=== PATIENT | male | born 1990 | race Caucasian/White ===

== ENCOUNTER → 2020-03-27 | Day surgery (SDC) | payer BC ==
[2020-03-22 10:53] VITALS: BMI 36.6
[~2020-03-27] MED LIST: ACETAMINOPHEN TAB 500 MG TAB PO ONE; DEXAMETHASONE SOD PHOSPHATE 10 MG/ML 1 ML VIAL IV ONE; HEPARIN SODIUM,PORCINE 5,000 UNIT/ML 1 ML VIAL SQ ONE; HYDROmorphone 0.5 MG/0.5 ML SYRINGE IVP PRN; KETOROLAC 15 MG/ML 1 ML VIAL ONE; LACTATED RINGERS 1,000 ML IV SCH; LIDOCAINE 1% INJ 10MG/ML (20 ML MDV) ONE; LIDOCAINE 1%-EPI 1:100,000 20 ML VIAL SQ ONE; MIDAZOLAM 2 MG/2 ML VIAL IV PRN; MIDAZOLAM 2 MG/2 ML VIAL ONE; ONDANSETRON 4 MG/2 ML VIAL IVP ONE; PROPOFOL 10 MG/ML 20 ML VIAL IV ONE; SCOPOLAMINE 1.5MG/72HR PATCH TRANSDERM ONE; SUCCINYLCHOLINE CHLORIDE VIAL 200 MG/10 ML VIAL IV ONE; fentaNYL (PF) 50 MCG/ML 2 ML AMP ONE; metroNIDAZOLE-NS PMX 500 MG in SALINE 1 100ML.BAG IVPB ONE
--- NOTE | 2020-03-27 08:36 | P.GSHP ---
History of Present Illness H&P Date: 03/27/20 Chief Complaint: Pilonidal cyst This a 21-year-old male who presents today for excision of pilonidal cyst. Patient has had a chronically inflamed phimosis for several months. Past Medical History Additional Past Medical History / Comment(s): pilonidal cyst History of Any Multi-Drug Resistant Organisms: None Reported Past Surgical History: Orthopedic Surgery Additional Past Surgical History / Comment(s): ORIF left arm-hardware later removed Past Anesthesia/Blood Transfusion Reactions: No Reported Reaction Additional Past Anesthesia/Blood Transfusion Reaction / Comment(s): no hx blood transfusion Smoking Status: Current every day smoker - Past Family History Mother Family Medical History: No Reported History Medications and Allergies Home Medications Medication Instructions Recorded Confirmed Type Ibuprofen [Motrin] 600 mg PO Q6HR PRN 03/22/20 03/27/20 History Allergies Allergy/AdvReac Type Severity Reaction Status Date / Time No Known Allergies Allergy Verified 03/27/20 06:47 Surgical - Exam Vital Signs Temp Pulse Resp BP Pulse Ox 97.0 F L 90 16 155/84 98 03/27/20 06:42 03/27/20 06:42 03/27/20 06:42 03/27/20 06:42 03/27/20 06:42 - General well developed, well nourished, no distress - Eyes PERRL - ENT normal pinna - Neck no masses - Respiratory normal expansion - Cardiovascular Rhythm: regular - Abdomen Abdomen: soft, non tender - Neurologic Chronically inflamed pilonidal cyst Assessment and Plan Assessment: Pilonidal cyst. We'll perform excision. Patient aware the wound only packed after surgery.
--- NOTE | 2020-03-27 08:37 | P.OP ---
Date of Procedure: 03/27/20 Preoperative Diagnosis: Pilonidal cyst Postoperative Diagnosis: Pilonidal cyst Procedure(s) Performed: Excision of pilonidal cyst Anesthesia: CARMEN Surgeon: Rodolfo Ac Estimated Blood Loss (ml): 10 Pathology: other (Pilonidal cyst) Condition: stable Disposition: PACU Description of Procedure: The patient's placed on the operative table in the prone position after receiving general endotracheal tube anesthesia. His prognosis was prepped and draped usual sterile fashion. Using cut mode on the Bovie the local skin incision was made around the prognosis and using left cautery subcu tissues were divided and the subpectoral cyst was excised. Hemostasis was achieved. The wound was then packed with Kerlix wet-to-dry. Patient tolerated the procedure well.
[2020-03-27 08:56] VITALS: TEMP 97
[2020-03-27 09:57] VITALS: RESP 17
[2020-03-27 09:58] VITALS: BP 103/56; PULSE 73
== END | disposition home or self-care (01) ==
LOC: OR 06:32
PROVIDERS: ATTEND Surgery
DX: L05.01 Pilonidal cyst with abscess (principal); Z98.890 Other specified postprocedural states; F17.210 Nicotine dependence, cigarettes, uncomplicated
CPT/HCPCS: 88304; 11770; J2250; J0330; J1644; J1100; J0690; J2405; J2001; J3010; J1885; J2704